=== PATIENT | female | born 1970 | race Caucasian/White ===

== ENCOUNTER 2023-09-20 10:36 | Emergency (ER) | payer OTHER, SELFPAY ==
[2023-09-20 10:40] VITALS: BP 153/94; PULSE 67; RESP 16; TEMP 35.8; O2SAT 99
--- NOTE | 2023-09-20 11:12 | ED.CHESTPAIN ---
HPI - Chest Pain General Chief Complaint: Chest Pain Stated Complaint: Chest pain Time Seen by Provider: 09/20/23 10:44 History of Present Illness HPI narrative: This 52-year-old female comes in reporting chest pain on and off over the past 5 weeks. She states that it is not related to exertion and that she cannot perform any maneuver or activity that causes the pain to worsen or be relieved. She does feel some nausea at times but has not had any vomiting. Today she felt a bit sweaty. She does not report any exercise intolerance. She has not had any lightheadedness or shortness of breath. She does have a couple cardiac risk factors, namely hypertension and hyperlipidemia, for which she is taking medications. She does report a remote history of reflux symptoms and thinks that this may be heartburn again. She states that she was taking a proton pump inhibitor about 10 years ago but has not done so since then. Related Data Home Medications Medication Instructions Recorded Confirmed gemfibrozil 600 mg tablet 1,200 mg PO DAILY 09/20/23 09/20/23 lisinopril 40 mg tablet 40 mg PO DAILY 09/20/23 09/20/23 Previous Rx's Medication Instructions Recorded pantoprazole 20 mg tablet,delayed 20 mg PO DAILY #30 tabs 09/20/23 release (Protonix) Allergies Allergy/AdvReac Type Severity Reaction Status Date / Time fluconazole [From Diflucan] Allergy Mild blisters Verified 09/20/23 10:46 orally Review of Systems Status of ROS Reports: 10 or more systems reviewed and unremarkable except as noted in History and below Narrative Constitutional: No fevers, no weight gain or loss. Eyes: No discharge. No vision changes. HENT: No congestion, no sore throat, no ear pain. Cardiovascular: No palpitations. Respiratory: No shortness of breath, no wheezes, no cough. Gastrointestinal: No abdominal pain, no vomiting, no diarrhea. Genitourinary: No dysuria, no hematuria. Musculoskeletal: Normal range of motion. Skin: No rashes, no pruritis. Neurological: No dizziness, weakness, sensory change, speech change. Endo/Heme/Allergies: No bruising or bleeding. No polydipsia. Pysch: no suicidality, no anxiety, no insomnia. All other systems reviewed and are negative. Exam Narrative Exam Narrative: Constitutional: Well-developed, well-nourished, no acute distress. HEENT: Normocephalic, atraumatic. Neck: Normal range of motion. Nontender. Supple. Heart: Regular. No murmurs. Normal rate. Intact distal pulses. Lungs: Clear to auscultation. No chest discomfort. No wheezes, rhonchi, or rales. Abdomen: Normal bowel sounds. Nontender. No rebound tenderness. Genitalia: Deferred. Back: No midline tenderness. Normal range of motion. Extremities: Normal range of motion. No injury. Skin: Intact. No rash. Warm. No erythema or pallor. Neurologic: No altered sensation. No weakness. Alert and oriented. Psychiatric: No suicidality. No anxiety or depression. No insomnia. Nursing notes and vitals signs are reviewed. Const Vital Signs, click to edit/add: Vital Signs - 24 hr 09/20/23 10:40 Temperature 96.5 F L Pulse Rate [Right Pulse Oximeter] 67 Respiratory Rate 16 Blood Pressure [Right Upper Arm] 153/94 H Pulse Oximetry 99 Oxygen Delivery Method Room Air Course Vital Signs Vital signs: Initial Vital Signs Temperature 96.5 F L 09/20/23 10:40 Temperature Source Temporal Artery Scan 09/20/23 10:40 Pulse Rate 67 09/20/23 10:40 Respiratory Rate 16 09/20/23 10:40 Blood Pressure 153/94 H 09/20/23 10:40 Blood Pressure Mean 113 H 09/20/23 10:40 Blood Pressure Position Sitting 09/20/23 10:40 Pulse Oximetry 99 09/20/23 10:40 Oxygen Delivery Method Room Air 09/20/23 10:40 Vital Signs Temperature 96.5 F L 09/20/23 10:40 Pulse Rate 67 09/20/23 10:40 Respiratory Rate 16 09/20/23 10:40 Blood Pressure 153/94 H 09/20/23 10:40 Pulse Oximetry 99 09/20/23 10:40 Oxygen Delivery Method Room Air 09/20/23 10:40 Temperature 96.5 F L 09/20/23 10:40 Pulse Rate 67 09/20/23 10:40 Respiratory Rate 16 09/20/23 10:40 Blood Pressure 153/94 H 09/20/23 10:40 Pulse Oximetry 99 09/20/23 10:40 Oxygen Delivery Method Room Air 09/20/23 10:40 MDM - Chest Pain MDM Narrative Medical decision making narrative: this patient comes in reporting chest discomfort on and off for the past 5 weeks. She does have a couple cardiac risk factors that she is treating including hypertension and hyperlipidemia. She states that her pain is not exertional related and does have good exercise tolerance. Pain is also not reproducible with certain movement her activities. She does have a history of heartburn and wonders if this is recurring now. EKG and labs today returned with normal findings. Patient is very reassured with this. It does seem that this is chest discomfort which is not cardiac or pulmonary related but rather reflux esophagitis. The patient did receive a prescription for Protonix. I did also discuss diet related matters that can help improve her symptoms. Lab Data Labs: Lab Results 09/20/23 09/20/23 Range/Units 11:10 11:25 WBC 6.55 (4.50-11.00) K/uL RBC 4.45 (4.00-5.20) m/uL Hgb 12.5 (12.0-16.0) gm/dL Hct 38.6 (33.0-51.0) % MCV 87 (80-100) fL MCH 28 (26-34) pg MCHC 32 (32-36) gm/dL RDW Coeff of Marcos 13.0 (11.5-15.5) % Plt Count 307 (140-440) K/uL Neut % (Auto) 67.2 (42.0-72.0) % Lymph % (Auto) 24.4 (20-44) % Amelia % (Auto) 5.8 (0.0-11.0) % Eos % (Auto) 2.0 (0.0-7.0) % Baso % (Auto) 0.6 (0.0-3.0) % Neut # (Auto) 4.40 (1.7-7.0) K/uL Lymph # (Auto) 1.60 (0.90-2.90) K/uL Amelia # (Auto) 0.40 (0.00-0.90) K/UL Eos # (Auto) 0.13 (0.00-0.50) K/uL Baso # (Auto) 0.04 (0.00-0.30) K/uL Abs Immat Gran (auto) 0.00 (0.00-0.30) K/uL Imm/Tot Granulo (auto) 0.0 % Sodium 140 (135-149) mmol/L Potassium 4.3 (3.6-5.1) mmol/L Chloride 107 (96-114) mmol/L Carbon Dioxide 23 (20-32) mmol/L Anion Gap 10 (7-15) mEq/L BUN 14 (7-30) mg/dL Creatinine 0.8 (0.5-1.5) mg/dL Estimated Creat Clear 75.70 Estimated GFR 90 ml/min Glucose 92 (60-115) mg/dL Calcium 8.9 (8.4-10.6) mg/dL POC Troponin I 0.00 L (0.01-0.04) ng/ml ECG Data Attestation: I personally reviewed and interpreted this ECG as follows: Interpretation: Normal sinus rhythm. Rate is Sixty-five beats per minute. There are no ST or T-wave abnormalities. Discharge Plan Discharge Clinical Impression: Esophagitis, reflux Patient Disposition: Home, Self-Care Condition: Stable Additional Instructions: take medication as prescribed and needed. Follow up with MD or return if not improving or worsening symptoms happen. Prescriptions: New pantoprazole [Protonix] 20 mg tablet,delayed release (DR/EC) 20 mg PO DAILY Qty: 30 2RF No Action gemfibrozil 600 mg tablet 1,200 mg PO DAILY lisinopril 40 mg tablet 40 mg PO DAILY Follow Up/Referrals: Helen Moreira PA-C [Primary Care Provider] - Stand Alone Forms: 1CLICK Info Instructions
[2023-09-20 11:30] VITALS: BP 134/93
[2023-09-20 11:32] LABS: Basophils Absolute Auto 0.04 K/uL (0.00-0.30); Basophils Percent Auto 0.6 % (0.0-3.0); Eosinophils Absolute Auto 0.13 K/uL (0.00-0.50); Hematocrit 38.6 % (33.0-51.0); Hemoglobin* 12.5 gm/dL (12.0-16.0); Lymphocytes Percent Auto 24.4 % (20-44); Mean Corpuscular HGB Conc 32 gm/dL (32-36); Mean Corpuscular Hemoglobin 28 pg (26-34); Mean Corpuscular Volume 87 fL (80-100); Monocytes Percent Auto 5.8 % (0.0-11.0); Neutrophils Percent Auto 67.2 % (42.0-72.0); Platelet Count* 307 K/uL (140-440); Red Blood Count 4.45 m/uL (4.00-5.20); White Blood Count* 6.55 K/uL (4.50-11.00)
[2023-09-20 11:37] LABS: Slide Review Reflex No
--- OUTSIDE RECORDS SUMMARY | 2023-09-20 11:43 | XMS_ITS | Continuity of Care Document ---
Author Name Unknown Organization [facility] Address [address] [place] [address] Phone Care Team Providers Care Production Floater Name Role Phone Jus Montano MD Unavailable Unavailable Medications Medication Instructions Dosage Effective Dates (start - stop) Status Comments STANBACK ANALGESIC (unknown strength) Not Available - Active GEMFIBROZIL (unknown strength) Not Available - Active LISINOPRIL (unknown strength) Not Available - Active Procedures Procedure Date Postop Followup Visit Postop Followup Visit Low Back Disk Surgery/Decompress 2012 [facility] Assist Low Back Disk Surgery/Decompre ss Office/Outpatient Visit,[facility] 2012 Advance Directives Directive Yes / No Effective Date File Name No Information Encounters Encounter Description Practice Location Reason(s) For Visit Diagnoses Date Provider Providers Copied on Encounter [facility], [address], [place], [place], [id number], [place] tel:[phone] [facility] No Information 6 Dusty Luu. [facility], [address], [place], [place], [id number] , [place]. tel:[phone] Z [facility], [address], [place], [address], [place] tel:[phone] [facility] No Information [address] [facility], [address] , [place], [address], [place]. tel:[phone] Referring Provider: Helen Moreira, [place] [address], [place], [address]. tel:[phone] Z [facility], [address] [place], [place] [address] [address], [place], [address], [place] tel:[phone] [facility] No Information 7201 3 Mehbod Amir. [facility], [address] [place] [address] [address], [place], [place], [id number] , [place]. tel:[phone] Referring Provider: Helen Moreira [facility] [address], [place], [address]. tel:[phone] Z [facility], [address] [place], [place] [address], [place], [address], [place] tel:[phone] [facility] No Information 6201 3 Mehbod Amir. [facility], [address], [place], [place], [id number] , [place]. tel:[phone] Referring Provider: Helen Moreira [facility] [address], [place], [address]. tel:[phone] Office/Outpat ient Visit,New, Low Z [facility], [address] [place], [place] [address], [place], [address], [place] tel:[phone] [facility] Hypertension , Unspecified 8201 3 Mehbod Amir. [facility], [address], [place], [place], [id number] , [place]. tel:[phone] Referring Provider: Helen Moreira [facility] [place], [address]. tel:[phone] Family History Family Member Type Diagnosis Age At Onset No Information Payers Payer name Insurance type Covered republican ID Authoriza tion(s) No Information Social History Type Description Quantity Date Captured Comments Sex Female Smoking Status No Information Chief Complaint And Reason For Visit No Information Reason For Referral Reason For Referral No Information History Of Present Illness Encounter Date Complaint History Of Prese nt Illness No Information Functional Status Date Functional Assessmen t No Information Instructions Date Instruction Additional Infor mation No Information Assessments Type Assessment Date No Information Patient Care Teams Name Effective Dates (start - stop) Status Members No Information
--- OUTSIDE RECORDS SUMMARY | 2023-09-20 11:43 | XMS_ITS | Continuity of Care Document ---
Author Name Unknown Organization [facility] Address [address] [place] [address] Phone Care Team Providers Care Human Service Coordinator Name Role Phone Jus Montano MD Unavailable Unavailable Medications Medication Instructions Dosage Effective Dates (start - stop) Status Comments STANBACK ANALGESIC (unknown strength) Not Available - Active GEMFIBROZIL (unknown strength) Not Available - Active LISINOPRIL (unknown strength) Not Available - Active Procedures Procedure Date Postop Followup Visit Postop Followup Visit Low Back Disk Surgery/Decompress 2012 Pa Assist Low Back Disk Surgery/Decompre ss Office/Outpatient Visit,[facility] 2012 Advance Directives Directive Yes / No Effective Date File Name No Information Encounters Encounter Description Practice Location Reason(s) For Visit Diagnoses Date Provider Providers Copied on Encounter [facility], [address], [place], [place], [id number], [place] tel:[phone] [facility] No Information 6 Dusty Luu. [facility], [address], [place], [place], [id number] , [place]. tel:[phone] Z [facility], [address], [place], [address], [place] tel:[phone] [facility] No Information 3 Vanessa Sarkar. [facility], [address] , [place], [address], [place]. tel:[phone] Referring Provider: Helen Moreira, [place] [address], [place], [address]. tel:[phone] Z [facility], [address] [place], [place] [address], [place], [address], [place] tel:[phone] [facility] No Information 7201 3 Mehbod Amir. [facility], [address] [place] [address] [address], [place], [place], [id number] , [place]. tel:[phone] Referring Provider: Helen Moreira [facility] [address], [place], [address]. tel:[phone] Z [facility], [address] [place], [place] [address], [place], [address], [place] tel:[phone] [facility] No Information 6201 3 Mehbod Amir. [facility], [address], [place], [place], [id number] , [place]. tel:[phone] Referring Provider: Helen Moreira [facility] [address], [place], [address]. tel:[phone] Office/Outpat ient Visit,New, Low Z [facility], [address] [place], [place] [address], [place], [address], [place] tel:[phone] [facility] Hypertension , Unspecified 8201 3 Mehbod Amir. [facility], [address], [place], [place], [id number] , [place]. tel:[phone] Referring Provider: Helen Moreira [facility] [place], [address]. tel:[phone] Family History Family Member Type Diagnosis Age At Onset No Information Payers Payer name Insurance type Covered alliance party ID Authoriza tion(s) No Information Social History [...]
[2023-09-20 11:55] LABS: Chloride* 107 mmol/L (96-114)
[2023-09-20 11:56] LABS: Potassium* 4.3 mmol/L (3.6-5.1); Sodium* 140 mmol/L (135-149)
[2023-09-20 11:58] LABS: Creatinine* 0.8 mg/dL (0.5-1.5); Estimated Glomerular Filt Rate 90 ml/min
[2023-09-20 11:59] LABS: Anion Gap 10 mEq/L (7-15); Blood Urea Nitrogen* 14 mg/dL (7-30); Calcium* 8.9 mg/dL (8.4-10.6); Carbon Dioxide* 23 mmol/L (20-32); Glucose* 92 mg/dL (60-115)
[2023-09-20 12:00] VITALS: BP 131/87
[2023-09-20 12:09] VITALS: PULSE 75; O2SAT 95
[2023-09-20 12:15] VITALS: PULSE 65; O2SAT 98
== END 2023-09-20 12:25 | disposition home or self-care (01) ==
PROVIDERS: Emergency Provider Emergency Medicine Emergency Medical Services; PCP Physician Assistant Medical
DX: K20.90 Esophagitis, unspecified without bleeding (principal)
CPT/HCPCS: 36415; 80048; 84484; 85025; 93005; 99284